=== PATIENT | female | born 1980 ===

== ENCOUNTER 2021-06-13 20:47 | Emergency (ER) | payer OTHER ==
[~2021-06-13] VITALS: Ht 154.9 cm; Wt 61.4 kg
[2021-06-13 21:27] LABS: HEMATOCRIT 35.7 % (37.0-47.0); HEMOGLOBIN 11.7 g/dl (12.0-16.0); IMMATURE GRANULOCYTES 0.1 % (0.0-5.0); MEAN CELL VOLUME 95.2 fL CALC (80.0-100.0); MEAN CORPUSCULAR HGB 31.2 pG CALC (26.0-32.0); MEAN CORPUSCULAR HGB CONC 32.8 g/dL CAL (32.0-36.0); NEUT# 3.36 thou/uL (2.00-7.15); RED BLOOD COUNT 3.75 mill/uL (4.20-5.60); RED CELL DISTRI WIDTH 12.3 % (11.5-15.5)
[2021-06-13 21:43] LABS: ALBUMIN 3.8 g/dL (3.2-5.0); ALKALINE PHOSPHATASE 101 u/l (38-126); ANION GAP 9 (6-22 (CALC)); BILIRUBIN, TOTAL 0.5 mg/dL (0.0-1.4); BUN 12 mg/dL (7-17); BUN/CREATININE RATIO 22 (12-20 (CALC)); CARBON DIOXIDE 26 mmol/l (22-30); CHLORIDE 110 mmol/l (95-108); CREATININE 0.6 mg/dL (0.5-1.0); GFR > 60 ML/MIN (>=60 (CALC)); GFR FOR AFR.AMER. > 60 ML/MIN (>=60 (CALC)); POTASSIUM 4.1 mmol/l (3.5-5.1); SGOT/AST 31 u/l (14-36); SODIUM 140 mmol/l (137-146); TOTAL PROTEIN 7.3 g/dL (6.3-8.2)
[2021-06-13 23:49] VITALS: BP 118/71
== END 2021-06-13 23:38 | disposition home or self-care (01) | DRG 605 ==
LOC: ED 20:47
PROVIDERS: Family Medicine
DX: S00.01XA Abrasion of scalp, initial encounter (principal); S16.1XXA Strain of muscle, fascia and tendon at neck level, initial encounter; R07.9 Chest pain, unspecified; V43.53XA Car driver injured in collision with pick-up truck in traffic accident, initial encounter